=== PATIENT | female | born 1990 | race Two or more races ===

== ENCOUNTER 2016-09-07 16:16 | Emergency (ER) | payer MEDICAID, OTHER ==
[2016-09-07] MEDS ORDERED: NS 1,000 ML IV ONE (16:39)
[2016-09-07] MEDS ORDERED: IBUPROFEN 600 MG TAB PO ONE (16:45)
--- NOTE | 2016-09-07 16:45 | EDPHY ---
H & P Stated Complaint: sent from [employer] for abnormal liver enzymes, h/a Source: Patient, Senior Accountant Analyst Exam Limitations: No limitations - Personal History LMP (Females 10-55): 1-7 Days Ago Current Tetanus/Diphtheria Vaccine: Unsure Current Tetanus Diphtheria and Acellular Pertussis (TDAP): Unsure Tetanus Vaccine Date: unsure - Medical/Surgical History Hx Asthma: No Hx Chronic Respiratory Disease: No Hx Diabetes: No Hx Cardiac Disease: No Hx Renal Disease: No Hx Cirrhosis: No Hx Alcoholism: No Hx HIV/AIDS: No Hx Splenectomy or Spleen Trauma: No Other PMH: Pyelonephritis in December 2014. Father with cardiac condition in 30s - Social History Smoking Status: Never smoked HPI/ROS: CHIEF COMPLAINT: Headache, abnormal liver function tests HISTORY OF PRESENT ILLNESS: patient reports a headache that has been present for over a month. This is generalized headache, somewhat worse on the occiput. It was gradual onset. It is constantly there but does wax and wane. It was worse for 2 weeks and then nearly resolved. Approximately 2 weeks ago returned again. It is mild at most times, and moderate to severe at night. It was more severe this morning and then the past few nights. She did have some neck pain a few weeks ago but has not had any since then. She reports subjective fever 3 days ago. some nausea but no vomiting. No chest pain or shortness of breath. No cough. no body aches or chills. She also notes a right lower mild abdominal discomfort since July. No particular modifying factors for any of this. She was seen at [facility] 2 days ago where they courtney laboratory studies. She was contacted today and told to come to the emergency department due to abnormal liver function test but she does not know the details of this. They also told her come here due to headache. She is currently breast-feeding a 1-year-old child. Last menstrual period was less than 2 weeks ago. No other associated complaints or modifying factors. HPI obtained with the use of the [facility] certified [place] prover. REVIEW OF SYSTEMS: Ten systems reviewed and are negative unless otherwise noted in the HPI EXAMINATION General Appearance: Alert, no distress Head: normocephalic, atraumatic . No tenderness. No hematoma. No deformity. Eyes: Pupils equal and round, no conjunctival pallor or injection . No nystagmus. EOMs intact. ENT, Mouth: Mucous membranes moist . Uvula midline. No erythema, edema or lesions Neck: Normal inspection, supple, non-tender. Painless range of motion all planes. No meningismus Respiratory: Lungs are clear to auscultation. No wheezing, rhonchi or crackles Cardiovascular: Regular rate and rhythm. No murmur. Pulses intact distally. Gastrointestinal: Abdomen is soft and nontender . No tympany. No rigidity. No CVA tenderness. Neurological: A&O, nonfocal, Cranial nerves 2-12 grossly intact. normal gait . Strength is symmetric in all limbs. No dysmetria. No pronator drift. Skin: Warm and dry, no rash Extremities: Nontender, no pedal edema Psychiatric: Mood and affect normal DIFFERENTIAL DIAGNOSES: Including but not limited to Headache, abnormal LFTs, abdominal pain, nausea, viral illness, MDM: 4:40 p.m. headache over a month duration without any meningismus on examination today. She is afebrile with normal vital signs. No trauma. No outward signs of abnormality. Neuro exam is nonfocal. We will obtain a copy of the laboratory studies from [facility] and repeat them today. No indication for CT scan at this time. No indication for LP based on history and examination. She also has a vague, generalized abdominal pain that has been present for greater than 4 weeks. She is 1 year and is still breast-feeding but does have her normal menses, most recently 10 days ago. abdominal examination is benign. No previous abdominal surgeries.Laboratory studies are pending at this time. 5:25 p.m. LFTs are elevated without hyperbilirubinemia. Ultrasound has been ordered. She is resting comfortably in no acute distress. 6:00 p.m. notified by radiologist that the ultrasound of the right upper quadrant is normal. No acute findings. 6:20 p.m. I discussed the case with the physician who was law firm receptionist for [facility], Dr. Gifty Henderson. She informed me that she was somewhat familiar with this scenario as 1 of the PAs there has discussed with her. I informed her of the laboratory studies, the ultrasound findings, and her examination. I informed her that I do not have any clinical suspicion for meningitis by history or examination. The liver function tests are elevated but consistent with what she has on hand. There is no elevation of the a bilirubin. She is not vomiting. She has no right upper quadrant pain. Dr. Henderson informed that she would like us to order a hepatitis panel, and that she will follow up on it or have the patient's primary provider Hannah Hayward PA-C, follow-up with the patient [facility] later this week or next week. Patient will be discharged home in stable condition with instructions to [facility] to discuss the hepatitis labs. She is to return to the emergency department for any neck pain or stiffness, worsening headache, vomiting or right upper quadrant pain. 6:30 p.m. I have discussed all of this with the patient with the use of the [place] prover. She is happy to hear that she can be discharged home, and she will follow up with her appointment tomorrow morning. SUPERVISION: Patient was evaluated in conjunction with the supervising physician. Please see their note for details. (Yuriy Burr) Constitutional: Initial Vital Signs Temperature (C) 36.6 C 09/07/16 16:24 Heart Rate 76 09/07/16 16:24 Respiratory Rate 16 09/07/16 16:24 Blood Pressure 134/88 H 09/07/16 16:24 O2 Sat (%) 98 09/07/16 16:24 O2 Delivery Mode Room Air Allergies/Adverse Reactions: No Known Allergies Allergy (Unverified 12/20/14 09:33) Home Medications: Medication Instructions Recorded Ibuprofen [Motrin (*)] 600 mg PO Q6 PRN #0 tab 07/26/15 Iron Polysacch/Iron Heme Polyp 28 mg PO BID #0 tab 07/26/15 [Bifera] Medical Decision Making Other Provider: PHYSICIAN DOCUMENTATION: The patient was evaluated and managed by the Physician Under Presser and myself. I have reviewed the chart and agree with the findings and plan of care as documented. In addition, I examined the patient myself at 1805. History confirmed as mild headache, not worst of life, she is comfortable now after nonsteroidal. Physical findings as follows: No right upper quadrant abdominal tenderness, speech is fluent, does not appear septic or toxic, history and physical with filling technician. Normal ultrasound and no right upper quadrant tenderness. Her child is 1-year- old. I think HELLP syndrome is unlikely. Discussed further testing and follow up with her primary care clinic. I think it is unlikely that her headache represents intracranial mass or bleeding or COMMISSION CLERK infection or other acute medical emergency. I am the secondary supervising physician. (Ramez Thakur) - Data Points Laboratory Results: Laboratory Results 09/07/16 16:40 09/07/16 16:40 09/07/16 09/07/16 09/07/16 17:20 16:40 16:40 WBC RBC Hgb Hct MCV MCH MCHC RDW Plt Count MPV Neut % (Auto) Lymph % (Auto) [place] % (Auto) Eos % (Auto) Baso % (Auto) Nucleat RBC Rel Count Absolute Neuts (auto) Absolute Lymphs (auto) Absolute Monos (auto) Absolute Eos (auto) Absolute Basos (auto) Absolute Nucleated RBC Immature Gran % Immature Gran # PT INR APTT Sodium Potassium Chloride Carbon Dioxide Anion Gap BUN Creatinine Estimated GFR Glucose Calcium Total Bilirubin Conjugated Bilirubin Unconjugated Bilirubin AST ALT Alkaline Phosphatase Total Protein Albumin Lipase Beta HCG, Qual NEGATIVE Urine Color PALE YELLOW Urine Appearance CLEAR Urine pH 5.0 (5.0-7.5) Ur Specific [place] 1.010 (1.002-1.030) Urine Protein NEGATIVE (NEGATIVE) Urine Ketones NEGATIVE (NEGATIVE) Urine Blood 2+ H (NEGATIVE) Urine Nitrate NEGATIVE (NEGATIVE) Urine Bilirubin NEGATIVE (NEGATIVE) Urine Urobilinogen NEGATIVE EU EU (0.2-1.0) Ur Leukocyte Esterase TRACE H (NEGATIVE) Urine RBC 1-3 /hpf /hpf (0-3) Urine WBC 3-5 /hpf H /hpf (0-3) Ur Epithelial Cells TRACE /lpf /lpf (NONE-1+) Ur Culture Indicated? INDICATED H (NI) Urine Glucose NEGATIVE (NEGATIVE) Hepatitis A IgM Ab Pending Hep Bs Antigen Pending Hep B Core IgM Ab Pending Hepatitis C Antibody Pending 09/07/16 09/07/16 09/07/16 16:40 16:40 16:40 WBC 12.40 10^3/uL H 10^3/uL (3.80-9.50) RBC 4.52 10^6/uL 10^6/uL (4.18-5.33) Hgb 14.3 g/dL g/dL (12.6-16.3) Hct 41.9 % % (38.0-47.0) MCV 92.7 fL fL (81.5-99.8) MCH 31.6 pg pg (27.9-34.1) MCHC 34.1 g/dL g/dL (32.4-36.7) RDW 13.5 % % (11.5-15.2) Plt Count 343 10^3/uL 10^3/uL (150-400) MPV 9.0 fL fL (8.7-11.7) Neut % (Auto) 49.4 % % (39.3-74.2) Lymph % (Auto) 37.3 % % (15.0-45.0) [place] % (Auto) 6.6 % % (4.5-13.0) Eos % (Auto) 5.6 % % (0.6-7.6) Baso % (Auto) 0.6 % % (0.3-1.7) Nucleat RBC Rel Count 0.0 % % (0.0-0.2) Absolute Neuts (auto) 6.14 10^3/uL 10^3/uL (1.70-6.50) Absolute Lymphs (auto) 4.62 10^3/uL H 10^3/uL (1.00-3.00) Absolute Monos (auto) 0.82 10^3/uL H 10^3/uL (0.30-0.80) Absolute Eos (auto) 0.69 10^3/uL H 10^3/uL (0.03-0.40) Absolute Basos (auto) 0.07 10^3/uL 10^3/uL (0.02-0.10) Absolute Nucleated RBC 0.00 10^3/uL 10^3/uL (0-0.01) Immature Gran % 0.5 % % (0.0-1.1) Immature Gran # 0.06 10^3/uL 10^3/uL (0.00-0.10) PT 12.2 SEC SEC (12.0-15.0) INR 0.91 (0.83-1.16) APTT 23.7 SEC SEC (23.0-38.0) Sodium 138 mEq/L mEq/L (134-144) Potassium 4.6 mEq/L mEq/L (3.5-5.2) Chloride 106 mEq/L mEq/L (97-110) Carbon Dioxide 20 mEq/l L mEq/l (22-31) Anion Gap 12 mEq/L mEq/L (8-16) BUN 16 mg/dL mg/dL (7-23) Creatinine 0.5 mg/dL L mg/dL (0.6-1.0) Estimated GFR > 60 Glucose 99 mg/dL mg/dL (70-100) Calcium 9.8 mg/dL mg/dL (8.5-10.4) Total Bilirubin 0.7 mg/dL mg/dL (0.1-1.4) Conjugated Bilirubin 0.5 mg/dL mg/dL (0.0-0.5) Unconjugated Bilirubin 0.2 mg/dL mg/dL (0.0-1.1) AST 95 IU/L H IU/L (14-46) ALT 229 IU/L H IU/L (9-52) Alkaline Phosphatase 164 IU/L H IU/L (38-126) Total Protein 8.8 g/dL H g/dL (6.3-8.2) Albumin 4.4 g/dL g/dL (3.5-5.0) Lipase 198.0 IU/L IU/L (23-300) Beta HCG, Qual Urine Color Urine Appearance Urine pH Ur Specific [place] Urine Protein Urine Ketones Urine Blood Urine Nitrate Urine Bilirubin Urine Urobilinogen Ur Leukocyte Esterase Urine RBC Urine WBC Ur Epithelial Cells Ur Culture Indicated? Urine Glucose Hepatitis A IgM Ab Hep Bs Antigen Hep B Core IgM Ab Hepatitis C Antibody Medications Given: Discontinued Medications Sodium Chloride (Ns) 1,000 mls @ 0 mls/hr IV ONCE ONE PRN Reason: Wide Open Stop: 09/07/16 16:40 Last Admin: 09/07/16 16:45 Dose: 1,000 mls Ibuprofen (Motrin) 600 mg PO EDNOW ONE Stop: 09/07/16 16:46 Last Admin: 09/07/16 16:55 Dose: 600 mg Departure - Departure Disposition: Home, Routine, Self-Care Clinical Impression: Abnormal liver function test Headache Qualifiers: Headache type: unspecified Headache chronicity pattern: chronic headache Intractability: not intractable Qualified Code(s): R51 - Headache Condition: Good Instructions: General Headache (ED) Additional Instructions: Follow up with primary care early next week to discuss the remainder of the laboratory studies in order. Return to the ER for sudden change of headache. Return to ER for any neck pain or stiffness. Carol frances marshall de seguimiento con ruelas doctor la proxima semana para comentar sobre el susan de los examenes de laboratorio. Regrese a la umair de emergencia si tiene repentino dolor de zhen. Regrese a la umair de emergencia si tiene dolor o entumido el gill. Referrals: [facility] [Other] - As per Instructions
[2016-09-07 16:59] LABS: % IMMATURE GRANULYOCYTES 0.5 % (0.0-1.1); ABSOLUTE IMMATURE GRANULOCYTES 0.06 10^3/uL (0.00-0.10); ADD DIFF? NO; ADD MORPH? NO; ADD SCAN? NO; ATYPICAL LYMPHOCYTE FLAG 0 (0-99); FRAGMENT RBC FLAG 0 (0-99); HEMATOCRIT 41.9 % (38.0-47.0); HEMOGLOBIN 14.3 g/dL (12.6-16.3); INR 0.91 (0.83-1.16); LEFT SHIFT FLG 0 (0-99); LIPEMIA HEMOLYSIS FLAG 90 (0-99); MEAN CELL HEMOGLOBIN 31.6 pg (27.9-34.1); MEAN CELL HEMOGLOBIN CONCENTR. 34.1 g/dL (32.4-36.7); MEAN CELL VOLUME 92.7 fL (81.5-99.8); PLATELET CLUMPS FLAG 0 (0-99); PLATELET COUNT 343 10^3/uL (150-400); PROTIME(PATIENT) 12.2 SEC (12.0-15.0); RED BLOOD CELL COUNT 4.52 10^6/uL (4.18-5.33); RED CELL DISTRIBUTION WIDTH 13.5 % (11.5-15.2)
[2016-09-07 17:00] LABS: APTT 23.7 SEC (23.0-38.0)
[2016-09-07 17:06] LABS: ALANINE AMINOTRANSFERASE 229 IU/L (9-52); ALBUMIN 4.4 g/dL (3.5-5.0); ALKALINE PHOSPHATASE 164 IU/L (38-126); ANION GAP 12 mEq/L (8-16); ASPARTATE AMINOTRANSFERASE 95 IU/L (14-46); BILIRUBIN,TOTAL 0.7 mg/dL (0.1-1.4); BILIRUBIN-CONJUGATED 0.5 mg/dL (0.0-0.5); BILIRUBIN-UNCONJUGATED 0.2 mg/dL (0.0-1.1); CALCIUM 9.8 mg/dL (8.5-10.4); CARBON DIOXIDE 20 mEq/l (22-31); CHLORIDE 106 mEq/L (97-110); CREATININE 0.5 mg/dL (0.6-1.0); GLOMERULAR FILTRATION RATE > 60; GLUCOSE 99 mg/dL (70-100); POTASSIUM 4.6 mEq/L (3.5-5.2); SODIUM 138 mEq/L (134-144); TOTAL PROTEIN 8.8 g/dL (6.3-8.2)
[2016-09-07 17:30] LABS: COLOR PALE YELLOW; LEUKOCYTE ESTERASE,URINE TRACE (NEGATIVE); NITRITE,URINE NEGATIVE (NEGATIVE)
[2016-09-07 18:48] VITALS: BP 129/79; PULSE 97; RESP 18; TEMP 97.5; O2SAT 94
== END 2016-09-07 18:48 | disposition home or self-care (01) ==
DX: R51 Headache (principal); R94.5 Abnormal results of liver function studies

== ENCOUNTER 2018-08-02 16:27 | Emergency (ER) | payer SELFPAY ==
--- NOTE | 2018-08-02 16:52 | EDPHY ---
General Time Seen by Provider: 08/02/18 16:52 Narrative: CLINICAL IMPRESSION: Fall, right elbow pain ASSESSMENT/PLAN: Patient is a 28-year-old female with no significant medical history who presents with complaint of right elbow pain after sustaining a mechanical fall, slipped on the ice just prior to arrival. Patient is nontoxic-appearing, she is in no acute distress on arrival. Her neurological exam is grossly normal with no focal deficit. Patient did hit her head however she has had no new focal neurologic deficit, no altered mentation, I have no suspicion of skull fracture , she is clinically not intoxicated, she is not on anticoagulation or antiplatelet therapy, she has no bleeding disorder, there has been no vomiting, no amnesia and no posttraumatic seizure. Low clinical suspicion for serious brain injury. CT considered but not indicated at this time. Elbow x-rays reveal no acute bony abnormality. There was no evidence of acute fracture, dislocation , compartment syndrome or neurovascular compromise. Her history and physical examination is most consistent with elbow pain after mechanical fall. Patient was tender on the olecranon process as well as the proximal radial and ulnar heads, secondary to amount of pain she was having she was placed in a posterior long arm splint with concern for occult fracture. CMS intact post splint placement. She will otherwise continue Tylenol and ibuprofen as needed for pain. She is well established at [facility] and will call to schedule an appointment for repeat examination; patient also provided referral for orthopedic surgery and understands the importance of calling on Sunday to schedule appointment for repeat examination next week. Return precautions discussed-patient to return to the emergency Department for significantly worsening or uncontrolled pain, significant swelling, numbness or tingling of the extremity, paleness or coolness of her digits, fever or for any other concerning symptom. The patient verbalizes understanding and she is in agreement with this plan. DIFFERENTIAL DX: Fracture, dislocation, effusion, contusion, compartment syndrome ED COURSE: 1717: Discussed case with Dr. Rosen Procedure: Splint placement. A posterior long arm splint was applied. After application of the splint I returned and re-examined the patient. The splint was adequately immobilizing the joint and distal to the splint the patient's circulation and sensation was intact. CHIEF COMPLAINT: Fall, right elbow pain HPI: Patient is a 28-year-old female with no significant medical history who presents to the emergency department after slipping on the ice subsequently falling on to her elbows and reportedly hitting her head on the grass. Patient presents complaining of right elbow pain. Patient was walking, accidentally slipped causing her to fall forward onto both elbows. She did hit her head in the grass, reports seeing stars however no definitive loss of consciousness. She denies any focal neurologic deficit, altered mentation, she has no known bleeding disorder, there has been no vomiting and no posttraumatic seizure. She does not take aspirin or other anticoagulation. Patient took 2 Tylenol prior to arrival with mild improvement of her pain. She denies any other injury , denies any headache, dizziness, neck or back pain. She has no prior injury to this extremity. PAST MEDICAL HISTORY: Denies Pertinent Past Surgical History: Denies Family History: Noncontributory Social History: Denies smoking or illicit drug use ROS: A full 10 point review of systems was negative except for those mentioned in HPI. PHYSICAL EXAM: General Appearance: Well-appearing, no acute distress. HEENT: Normocephalic, atraumatic. She has no tenderness to palpation on her scalp. No Rene sign or raccoon eyes. External ears are normal. TMs are clear bilaterally no perforation or FB, no injection, no evidence of serous or mucopurulent otitis. Oropharynx clear is no erythema or exudates, no tonsillar hypertrophy or asymmetry. Dentition without abnormality. Eyes: PERRLA, EOMI intact with no evidence of entrapment. nystagmus, swelling, discharge, pain or photosensitivity. Conjunctiva pink, no pallor or injection Neck: Supple, nontender, no lymphadenopathy, no midline pain, FROM, no meningismus. Respiratory: There are no retractions, lungs are clear to auscultation. Cardiac: Regular rate and rhythm, no murmurs or gallops. Gastrointestinal: Abdomen is soft, nontender, bowel sounds normal, no masses/ hernia, no rigidity, guarding or focal peritoneal findings. Skin: Warm, dry, no rashes, no nodules on palpation. Upper Extremities: Right shoulder is nontender with full range of motion, upper arm compartment is soft. Patient with generalized tenderness to palpation of her right elbow, no appreciable edema, ecchymosis or abrasions. Patient is able to pronate and supinate without difficulty. She has tenderness to palpation at the olecranon process and proximal ulna and radius. Forearm compartment is soft. The radial, ulnar and median nerves were all tested. Radial nerve: Patient is able to extend wrist and fingers of the local joints. Ulnar nerve: Patient is able to abduct all fingers. Median nerve patient is able to oppose thumb to pinky. Intact distal pulses, Full range of motion intact, no tenderness, no ecchymosis or edema Right wrist and hand are nontender with full range of motion. Lower Extremities: Intact distal pulses, No edema, No tenderness, No cyanosis, full range of motion intact, No calf tenderness bilaterally. MEDICAL DECISION MAKING: Patient was seen independently. Secondary supervising physician at time of evaluation was Dr. Rosen, he did not evaluate this patient. Diagnosis: Right elbow pain. New, requires workup Summary: See Assessment and Plan for summary of ED visit Clinical lab tests: Not applicable. Independent visualization of images, tracing, or specimens: Yes. Decision to obtain medical records or history from someone other than the patient: No Review / Summarize previous medical records: No Discussed patient with another provider: Yes, Dr. Rosen Patient Progress: Stable, discharge. - Diagnostics Imaging Results: Imaging Impressions Elbow X-Ray 08/02/18 16:35 Impression: Nothing acute identified. - History Smoking Status: Never smoked - Objective Vital Signs: Initial Vital Signs Temperature (C) 36.9 C 08/02/18 16:30 Heart Rate 88 08/02/18 16:30 Respiratory Rate 18 08/02/18 16:30 Blood Pressure 125/75 H 08/02/18 16:30 O2 Sat (%) 98 08/02/18 16:30 O2 Delivery Mode Room Air Allergies/Adverse Reactions: No Known Allergies Allergy (Verified 08/02/18 16:30) Home Medications: Medication Instructions Recorded NK [No Known Home Meds] 08/02/18 Departure - Departure Disposition: Home, Routine, Self-Care Clinical Impression: Injury of elbow Qualifiers: Encounter type: initial encounter Laterality: right Qualified Code(s): S59.901A - Unspecified injury of right elbow, initial encounter Condition: Good Instructions: Contusion in Adults (ED) Additional Instructions: DISCHARGE INSTRUCTIONS FROM YOUR DOCTOR Thank you for visiting our emergency department today. Please keep in mind that discharge from the emergency department does not mean that there is nothing wrong - it simply means that we have not identified an emergency condition that requires further evaluation or treatment in the hospital. You should always plan to follow up with primary care for re-evaluation of your condition in the next 2-3 days. Rest, ice (on and off), elevate the arm as much as possible above the level of the heart to decrease pain and swelling. Please continue wearing her splint as applied, do not remove it until you follow up with Orthopedic surgery. Using sling as needed. Your x-ray did not reveal any acute fracture however there is still a possibility of having an occult fracture which is why we recommend you following up with Orthopedic surgery. For pain control: You may take Tylenol, I recommend 500-1000 mg every 6-8 hours as needed. Take with food and a full glass of water. Stop taking if this is upsetting her stomach. Do not exceed 4000 mg in a 24 hr period. You may also take ibuprofen, recommend 400 mg every 6 hr. Take with food and a full glass of water. Stop taking if this upsets her stomach. Do not exceed 2400 mg in a 24 hr period. Continue your regular medications as prescribed. Return for increased pain or swelling, numbness, tingling or weakness of the fingers, discoloration of the fingers, fever,inability to move your fingers or any other new, worsening or worrisome symptoms. People present with illnesses and injuries in different ways, and it is always possible that we have missed something. You may always return for re-evaluation if symptoms worsen or if they are not improving or if you develop new/different symptoms. Again, thank you for choosing our emergency department. We hope that you feel better. Referrals: NONE *PRIMARY CARE P,. [Primary Care Provider] - Follow Up Only If Needed ( [facility]) Teo Leos MD [Medical Doctor] - 2-3 days, call for appt.
[2018-08-02] MEDS ORDERED: IBUPROFEN 200 MG TAB PO ONE (17:19)
[2018-08-02 17:52] VITALS: BP 127/74
== END 2018-08-02 17:50 | disposition home or self-care (01) ==
PROC: 2W38X1Z Immobilization of Right Upper Extremity using Splint (ICD-10-PCS; principal; 2018-08-02)
DX: S59.901A Unspecified injury of right elbow, initial encounter (principal); W00.0XXA Fall on same level due to ice and snow, initial encounter; Y92.9 Unspecified place or not applicable; Y93.9 Activity, unspecified; Y99.9 Unspecified external cause status
CPT/HCPCS: A4565